=== PATIENT | female | born 1975 | race Hispanic/Latino ===

== ENCOUNTER → 2017-12-14 | Outpatient (CLI) | payer OTHER ==
--- NOTE | 2017-12-14 14:23 | Diagnostic Imaging Report ---
PROCEDURE:US PELVIS COMPLETE NON OB COMPARISON:None. INDICATIONS:Not provided. CONCLUSION: Please refer to "US TRANSVAGINAL" performed at the same date and time for full dictated report. Dictated by: Sky Acharya M.D. on 12/14/2017 at 14:23 Electronically approved by: Sky Acharya M.D. on 12/14/2017 at 14:23
--- NOTE | 2017-12-14 14:23 | Diagnostic Imaging Report ---
PROCEDURE:TRANSVAGINAL ULTRASOUND COMPARISON:Chronic pelvic pain, endometriosis. INDICATIONS:Not provided. TECHNIQUE: Grayscale transverse and sagittal transabdominal and transvaginal images were obtained of the pelvis. Transvaginal imaging was medically necessary to better evaluate the endometrium. FINDINGS: UTERUS: 9.3 x 4.3 x 4.5 cm. Within the posterior uterine body there is a hypoechoic round mass measuring 1.7 x 1.2 x 1.4 cm compatible with a fibroid. Otherwise uniform parenchymal echotexture. ENDOMETRIUM: Normal in thickness, measuring 0.7 cm. RIGHT OVARY: 3.7 x 2.3 x 4.4 cm. Within the right ovary there is an ovoid anechoic structure measuring 2 x 1.2 x 1.7 cm compatible with a simple cyst or dominant follicle. Also in the right ovary, there is a similar ovoid hypoechoic structure with low level internal echoes measuring 2.8 x 1.9 x 1.5 cm, without internal vascularity by color Doppler analysis. LEFT OVARY: 2.7 x 1.6 x 3.8 cm. Unremarkable in sonographic appearance. There is no free fluid within the pelvis. No adnexal masses. CONCLUSION: Probable small uterine fibroid. Right ovarian cystic lesion with low level internal echoes most likely represents a hemorrhagic cyst. A followup transvaginal pelvic ultrasound in 8-12 weeks is suggested to document resolution. Dictated by: Sky Acharya M.D. on 12/14/2017 at 14:22 Electronically approved by: Sky Acharya M.D. on 12/14/2017 at 14:22
== END ==
LOC: MAMMO 11:57
PROVIDERS: ATTEND Obstetrics & Gynecology
DX: Z12.31 Encounter for screening mammogram for malignant neoplasm of breast (principal); R10.2 Pelvic and perineal pain; Z87.42 Personal history of other diseases of the female genital tract
CPT/HCPCS: 76830; 76856

== ENCOUNTER → 2020-06-16 | Outpatient (CLI) | payer BC ==
--- NOTE | 2020-06-18 13:42 | Diagnostic Imaging Report ---
#[id number] - MGSCRBIL #BILATERAL DIGITAL SCREENING MAMMOGRAM WITH CAD: 06/16/2020 CLINICAL: Routine screening. Comparison is made to exams dated: 12/14/2017 mammogram, 12/29/2015 mammogram, 12/19/2014 mammogram, 12/06/2014 mammogram and 11/16/2013 mammogram - [facility]. The tissue of both breasts is heterogeneously dense. This may lower the sensitivity of mammography. Current study was also evaluated with a Computer Aided Detection (CAD) system. There are benign lymph nodes in both breasts. There also are benign calcifications in the right breast. No significant masses, calcifications, or other findings are seen in either breast. There has been no significant interval change. IMPRESSION: BENIGN There is no mammographic evidence of malignancy. A 1 year screening mammogram is recommended. The patient will be notified by letter of the results. TYRONE mcdonough/freida:06/18/2020 11:38:45 Lap Machine Tender: Chelsey WALLACE(Britton)(M), [facility] letter sent: Compared to Prior B9 Mammogram BI-RADS: 2 Benign
== END ==
LOC: MAMMO 10:12
PROVIDERS: ATTEND Obstetrics & Gynecology
DX: Z12.31 Encounter for screening mammogram for malignant neoplasm of breast (principal)
CPT/HCPCS: 77067